=== PATIENT | female | born 1995 | race Caucasian/White ===

== ENCOUNTER 2022-06-27 02:18 | Inpatient (IN) | payer BC ==
[2022-06-27] MEDS ORDERED: Ondansetron 4 MG/2 ML SDV IVPUSH PRN (02:23)
[2022-06-27] MEDS ORDERED: Nalbuphine 10 MG/0.5 ML Syringe IVPUSH PRN (02:23)
[2022-06-27] MEDS ORDERED: Sodium Chloride 0.9% 10 ML Syringe FLUSH PRN (02:23)
[2022-06-27] MEDS ORDERED: Lactated Ringers 1,000 ML IV SCH (02:30)
[2022-06-27] MEDS ORDERED: Oxytocin/Lactated Ringers 10 UNIT/1,000 ML BAG IV SCH ×2 (02:30)
[2022-06-27] MEDS ORDERED: Sodium Chloride 0.9% 10 ML Syringe FLUSH SCH (09:00)
[2022-06-27] MEDS ORDERED: Benzocaine/Menthol 20%-0.5% Spray 78 GM Cannister TOP PRN (09:40)
[2022-06-27] MEDS ORDERED: Ibuprofen 600 MG Tab PO PRN (09:40)
[2022-06-27] MEDS ORDERED: Witch Hazel Medicated Pads 40/Jar TOP PRN (09:40)
[2022-06-27] MEDS ORDERED: Acetaminophen 325 MG Tab PO PRN (09:40)
[2022-06-27] MEDS ORDERED: Docusate Sodium 100 MG Cap PO PRN (09:40)
== END 2022-06-28 11:45 | disposition home or self-care (01) | DRG 560 ==
LOC: JD.OBCHECK 02:18 → JD.OB 02:19 → JD.OBCHECK 02:22 → JD.OB 02:23 → OBSVTOIN 08:35 → JD.MS 08:36 → JD.OB 12:42
PROVIDERS: ADMIT Obstetrics & Gynecology; ATTEND Obstetrics & Gynecology
PROC: 10E0XZZ Delivery of Products of Conception, External Approach (ICD-10-PCS; principal; 2022-06-27)
PROC: 0KQM0ZZ Repair Perineum Muscle, Open Approach (ICD-10-PCS; 2022-06-27)
DX: O48.0 Post-term pregnancy (principal); Z3A.40 40 weeks gestation of pregnancy; Z37.0 Single live birth; O70.1 Second degree perineal laceration during delivery
CPT/HCPCS: 36415; 51701; 59025; 59409; 85027; 86592; 86850; 86900; 86901; J2590; J7120